=== PATIENT | male | born 1940 | race Caucasian/White ===

== ENCOUNTER 2017-02-13 12:18 | Inpatient (IN) | payer OTHER ==
[~2017-02-13] VITALS: Ht 177.8 cm; Wt 103.8 kg
--- NOTE | ~2017-02-13 | EKG ---
[address] [address] ELECTROCARDIOGRAM REPORT Name: GARETHCHIARA Meyers Room #: 211-P [facility]..#: [id number] Admission: 02/13/17 Attend Phys: Alexandro Vernon Discharge: Date of : 40 Report #: [id number] THIS REPORT FOR: //name// [facility] ED Test Date: 2017-02-13 Test Time: 12:25:19 Pat Name: CHIARA SERVIN Department: Room: 211 Gender: M [employer]: NANCY : 1940 Requested By: Brit Dean Order Number: [id number] MD: Jourdan Capone Measurements Intervals Bronson Rate: 64 P: 30 GA: 128 QRS: 19 QRSD: 154 T: 1 QT: 454 QTc: 469 Interpretive Statements Sinus rhythm Right bundle branch block Inferior infarct, old Compared to ECG 02/10/2014 11:11:21 Sinus bradycardia no longer present Myocardial infarct finding still present Electronically Signed On 02-13-2017 22:40:04 CDT by Jourdan Capone [email or web address] <ELECTRONICALLY SIGNED> By: Jourdan Capone MD 02/13/17 2240 1225 1225 Jourdan Capone MD /EPI
[~2017-02-13 12:18] MED LIST: AMARYL2 MG PO; ATORVASTATIN CA20 MG PO; COUMADIN7.5 MG PO; DOXYCYCLINE 10100 MG PO; FENOFIBRATE134 MG PO; FINASTERIDE5 MG PO; JANTOVEN7.5 MG PO; LANTUS SUBQ; LOPRESSOR 50 MG50 M1 PO; MUCINEX600 MG PO; NORCO 5-325 TA1 EACH PO; NOVOLOG100 UNIT/1 SUBQ; PRILOSEC 10MG C10 M1 PO; PRILOSEC 20 MG20 MG PO; SIMVASTATIN80 MG PO; SYNTHROID100 MCG PO; TAMSULOSIN HCL0.4 MG PO; TOPROL XL50 MG PO; VANCOMYCIN100 MG/M1 PO; ZESTRIL10 MG PO
[2017-02-13 12:33] VITALS: BP 157/72
[2017-02-13 13:19] LABS: ABSOLUTE NEUTROPHILS 3.5 thou/uL (1.4-8.2); BASOPHILS 0.8 % (0.0-2.0); EOSINOPHILS 3.2 % (0.0-3.0); HEMATOCRIT 43.4 % (42.0-52.0); HEMOGLOBIN 14.8 gm/dL (14.0-18.0); LYMPHOCYTES 20.4 % (24.0-44.0); MCH 30.6 pg (26.0-34.0); MCHC 34.1 g/dL (28.0-37.0); MCV 89.8 fL (80.0-100.0); MONOCYTES 9.4 % (1.0-8.0); PLATELET COUNT 177 thou/uL (150-400); POLYS 66.2 % (36.0-66.0); RBC 4.83 mil/uL (4.50-6.00); RDW 14.5 % (10.5-14.5); WBC 5.3 thou/uL (4.0-11.0)
[2017-02-13 13:20] LABS: MANUAL DIFF NO
[2017-02-13 13:31] LABS: APTT 40.4 Seconds (24.5-32.8); INR 1.9; PROTIME 19.1 Seconds (9.3-11.4)
[2017-02-13 13:32] LABS: ANION GAP 5 mmol/L (7-16); BUN 17 mg/dL (7-18); CALCIUM 9.1 mg/dL (8.5-10.1); CHLORIDE 104 mmol/L (98-107); CO2 28 mmol/L (21-32); GLUCOSE 185 mg/dL (74-106); POTASSIUM 4.3 mmol/L (3.5-5.1); SODIUM 137 mmol/L (136-145)
[2017-02-13 13:41] LABS: TROPONIN-I < 0.04 ng/mL (<0.04-0.07)
[2017-02-13 14:30] VITALS: BP 136/73
[2017-02-13 14:55] VITALS: BP 105/64
[2017-02-13] MEDS ORDERED: FLOMAX0.4 MG PO (15:52)
[2017-02-13 16:23] VITALS: BP 156/87
[2017-02-13 19:17] VITALS: BP 140/79
[2017-02-13 23:33] VITALS: BP 123/74
[2017-02-14 03:09] LABS: INR 1.8; PROTIME 17.9 Seconds (9.3-11.4)
[2017-02-14 03:19] LABS: ALBUMIN 3.3 g/dL (3.4-5.0); ANION GAP 5 mmol/L (7-16); BUN 18 mg/dL (7-18); CALCIUM 8.6 mg/dL (8.5-10.1); CHLORIDE 105 mmol/L (98-107); CO2 28 mmol/L (21-32); CREATININE 1.1 mg/dL (0.7-1.3); GLUCOSE 214 mg/dL (74-106); PHOSPHORUS 3.5 mg/dL (2.5-4.9); POTASSIUM 4.1 mmol/L (3.5-5.1); SODIUM 138 mmol/L (136-145); TROPONIN-I < 0.04 ng/mL (<0.04-0.07)
[2017-02-14 03:56] VITALS: BP 115/75
[2017-02-14 08:00] VITALS: BP 127/80
[2017-02-14 12:00] VITALS: BP 137/80
[2017-02-14 16:03] VITALS: BP 140/74
[2017-02-14 17:40] VITALS: BP 140/74
== END 2017-02-14 18:12 | disposition home or self-care (01) | DRG 313 ==
LOC: ER 12:18 → EROBS 14:08 → ER 14:08 → EROBS 14:10 → 2N 14:24
PROVIDERS: Emergency Medicine; Hospitalist
DX: R07.9 Chest pain, unspecified (principal); I10 Essential (primary) hypertension; E11.9 Type 2 diabetes mellitus without complications; E78.00 Pure hypercholesterolemia, unspecified; I25.10 Atherosclerotic heart disease of native coronary artery without angina pectoris; E78.5 Hyperlipidemia, unspecified; Z95.1 Presence of aortocoronary bypass graft; Z87.891 Personal history of nicotine dependence; Z88.8 Allergy status to other drugs, medicaments and biological substances; Z88.1 Allergy status to other antibiotic agents; Z95.2 Presence of prosthetic heart valve
CPT/HCPCS: 10081